=== PATIENT | male | born 1995 | race Caucasian/White ===

== ENCOUNTER 2016-04-02 20:27 | Emergency (ER) | payer OTHER ==
[2016-04-02] MEDS ORDERED: AMOX TR/POT CLAV 875MG/125MG TABLETS (FP) PO ONE (20:53)
[2016-04-02 20:57] VITALS: BP 135/80; PULSE 81; TEMP 99.5; BMI 49.4
--- NOTE | 2016-04-02 20:59 | PDOC ---
History of Present Illness - General History Source: Patient Exam Limitations: No Limitations - History of Present Illness Initial Comments: 04/02/16 20:59 The patient is a 20 year old male with no significant past medical history, who presents to the ED with a fever, cough, cold w/ yellow nasal discharge, headache , and difficulty breathing for the past 3 days ago. Patient states he coughed up streaks of blood as well. Patient states he was put on azithromycin when he had the flu two weeks ago. Patient has been taking nyquil and dayquil with no alleviation. Patient denies any sick contacts. Patient denies smoking cigarettes, denies drinking alcohol. PCP: Dr. Griffin <Stefan Cerna - Last Filed: 04/02/16 20:59> <Chuyita Fallon - Last Filed: 04/03/16 05:38> - General Chief Complaint: Cold Symptoms Stated Complaint: COUGH Time Seen by Provider: 04/02/16 20:29 Past History <Stefan Cerna - Last Filed: 04/02/16 20:59> - Past Medical History Other medical history: SEASONAL ALLERGIES - Surgical History Appendectomy: Yes - Immunization History Immunization Up to Date: Yes - Psycho/Social/Smoking Cessation Hx Anxiety: No Suicidal Ideation: No Smoking History: Never smoked Have you smoked in the past 12 months: No Number of Cigarettes Smoked Daily: 0 Hx Alcohol Use: Yes (social) Drug/Substance Use Hx: No Substance Use Type: None <Chuyita Fallon - Last Filed: 04/03/16 05:38> - Past Medical History Allergies/Adverse Reactions: Allergies Allergy/AdvReac Type Severity Reaction Status Date / Time No Known Allergies Allergy Verified 12/13/15 15:45 Home Medications: Ambulatory Orders Amox-Tr/K Cl [Augmentin - 875Mg Tablet] 1 tab PO BID #14 tablet 04/02/16 Review of Systems - Review of Systems Able to Perform ROS?: Yes Comments:: 04/02/16 21:00 CONSTITUTIONAL: Present: fever Absent: chills, diaphoresis, generalized weakness, malaise, loss of appetite HEENT: Absent: rhinorrhea, nasal congestion, throat pain, throat swelling, difficulty swallowing, mouth swelling, ear pain, eye pain, visual Changes CARDIOVASCULAR: Absent: chest pain, syncope, palpitations, irregular heart rate, lightheadedness , peripheral edema RESPIRATORY: Present: cough, difficulty breathing Absent: dyspnea with exertion, orthopnea, wheezing, stridor, hemoptysis GASTROINTESTINAL: Absent: abdominal pain, abdominal distension, nausea, vomiting, diarrhea, constipation, melena, hematochezia GENITOURINARY: Absent: dysuria, frequency, urgency, hesitancy, hematuria, flank pain, genital pain MUSCULOSKELETAL: Absent: myalgia, arthralgia, joint swelling SKIN: Absent: rash, itching, pallor HEMATOLOGIC/IMMUNOLOGIC: Absent: easy bleeding, easy bruising, lymphadenopathy, frequent infections ENDOCRINE: Absent: unexplained weight gain, unexplained weight loss, heat intolerance, cold intolerance NEUROLOGIC: Present: headache Absent: focal weakness or paresthesias, dizziness, unsteady gait, seizure, mental status changes, bladder or bowel incontinence PSYCHIATRIC: Absent: anxiety, depression, suicidal or homicidal ideation, hallucinations. <Stefan Cerna - Last Filed: 04/02/16 20:59> *Physical Exam - Vital Signs Last Vital Signs Temp Pulse Resp BP Pulse Ox 99.5 F 81 16 135/80 96 04/02/16 20:30 04/02/16 20:30 04/02/16 20:30 04/02/16 20:30 04/02/16 20:30 - Physical Exam Comments: 04/02/16 21:00 GENERAL: The patient is awake, alert, and fully oriented, in no acute distress. HEAD: Normal with no signs of trauma. EYES: Pupils equal, round and reactive to light, extraocular movements intact, sclera anicteric, conjunctiva clear with no pallor. ENT: Ears normal, nares patent. Oropharynx erythematous without exudates. Dry mucous membranes. NECK: Normal range of motion, supple without lymphadenopathy, JVD, or masses. LUNGS: Breath sounds equal, clear to auscultation bilaterally. No wheeze/ crackles. HEART: Regular rate and rhythm, normal S1 and S2 without murmur or rub. ABDOMEN: Soft/nontender/nondistended. BS wnl. No guarding or rebound. No palpable masses. No hepatosplenomegaly. EXTREMITIES: Normal range of motion, no edema. No clubbing or cyanosis. No cords, erythema, or tenderness. NEUROLOGICAL: Cranial nerves II through XII grossly intact. Normal speech, normal gait. PSYCH: Normal mood, normal affect. SKIN: Warm, Dry, normal turgor, no rashes or lesions noted. <Stefan Cerna - Last Filed: 04/02/16 20:59> - Vital Signs Last Vital Signs Temp Pulse Resp BP Pulse Ox 99.5 F 81 16 135/80 96 04/02/16 20:30 04/02/16 20:30 04/02/16 20:30 04/02/16 20:30 04/02/16 20:30 <Chuyita Fallon - Last Filed: 04/03/16 05:38> ED Treatment Course - Medications Given in the ED: ED Medications Discontinued Medications Generic Name Dose Route Start Last Admin Trade Name Freq PRN Reason Stop Dose Admin Amoxicillin/Clavulanate Potassium 1 tab 04/02/16 20:53 04/02/16 20:57 Augmentin - 875mg Tablet PO 04/02/16 20:54 1 tab ONCE ONE Administration <Stefan Cerna - Last Filed: 04/02/16 20:59> Progress Note - Progress Note Progress Note: Documentation has been prepared under my direction and personally reviewed by me in its entirety. I attest that this documented accurately reflects all work, treatment, procedures and medical decision making performed by me. <Chuyita Fallon - Last Filed: 04/03/16 05:38> Medical Decision Making - Medical Decision Making As noted above, this 20-year-old man presents with a few day history of fever, purulent nasal discharge and cough productive of yellowish sputum. Patient recently treated for bronchitis with azithromycin, course of antibiotics completed approximately 10 days ago. Since then, the patient has been traveling on business and now presents with new symptoms. Exam as noted above. Clinical presentation consistent with viral upper respiratory infection that has , in the last 48 hours likely resulted in bacterial sinusitis. Because patient has persistence of symptoms despite [id number] antihistamine/decongestant , along with persistent fever, patient will be treated with Augmentin 875/125 for the next week. He is been advised to rest, drink plenty of fluids and use humidifier in his home environment. He should return to the emergency room if he has any worsening of his symptoms but plan to follow up with his PMD, Dr. Griffin within the next 3-4 days. <Chuyita Fallon - Last Filed: 04/03/16 05:38> *DC/Admit/Observation/Transfer - Attestations Scribe Attestion: 04/02/16 21:00 Documentation prepared by Stefan Cerna, acting as chief medical director for Chuyita Fallon MD. <Stefan Cerna - Last Filed: 04/02/16 20:59> <Chuyita Fallon - Last Filed: 04/03/16 05:38> Diagnosis at time of Disposition: Acute sinusitis Qualifiers: Sinusitis location: frontal Recurrence: non-recurrent Qualified Code(s): J01.10 - Acute frontal sinusitis, unspecified Acute bronchitis Qualifiers: Bronchitis organism: unspecified organism Qualified Code(s): J20.9 - Acute bronchitis, unspecified - Discharge Dispostion Disposition: HOME Condition at time of disposition: Stable - Prescriptions Prescriptions: Amox-Tr/K Cl [Augmentin - 875Mg Tablet] 1 tab PO BID #14 tablet - Referrals Referrals: Michael Griffin MD [Primary Care Provider] - 3 days - Patient Instructions Printed Discharge Instructions: Sinusitis Additional Instructions: rest;drink plenty of fluids Augmentin 875/125 twice a day for one week take antibiotic with food use humidifier in your home followup with Dr Griffin within 2-3 days return to ER if you have high fever or difficulty breathing
== END 2016-04-02 21:06 | disposition home or self-care (01) ==
LOC: FER 20:27
DX: J01.10 Acute frontal sinusitis, unspecified (principal); J20.9 Acute bronchitis, unspecified
CPT/HCPCS: 99281-25

== ENCOUNTER 2016-04-29 16:55 | Emergency (ER) | payer OTHER ==
--- NOTE | 2016-04-29 16:58 | PDOC ---
History of Present Illness - General History Source: Patient Exam Limitations: No Limitations - History of Present Illness Initial Comments: 04/29/16 17:10 The patient is a 20 year old male, with no significant past medical history, who presents to the emergency department with left upper quadrant bulging. He reports that he awoke with the bulge and denies any pain. He notes that he had bronchitis 3 weeks ago and 3 weeks before that he had the flu. He denies any kind of injury to the area. The patient denies chest pain, shortness of breath, headache and dizziness. Denies fever, chills, nausea, vomit, diarrhea and constipation. Allergies: None Past surgical history: Appendectomy Social history: Social alcohol use. He denies tobacco or drug use reported PMD - Dr. Griffin <Denis Kendrick - Last Filed: 04/29/16 17:10> <Jada Vázquez - Last Filed: 04/30/16 11:24> - General Chief Complaint: Pain Stated Complaint: LQP PAIN/BRUISE Time Seen by Provider: 04/29/16 16:57 Past History <Denis Kendrick - Last Filed: 04/29/16 17:10> - Surgical History Appendectomy: Yes - Immunization History Immunization Up to Date: Yes - Psycho/Social/Smoking Cessation Hx Anxiety: No Suicidal Ideation: No Smoking History: Never smoked Have you smoked in the past 12 months: No Number of Cigarettes Smoked Daily: 0 Hx Alcohol Use: Yes (social) Drug/Substance Use Hx: No Substance Use Type: None <Jada Vázquez - Last Filed: 04/30/16 11:24> - Past Medical History Allergies/Adverse Reactions: Allergies Allergy/AdvReac Type Severity Reaction Status Date / Time No Known Allergies Allergy Verified 04/29/16 16:57 Home Medications: Ambulatory Orders Cholecalciferol (Vitamin D3) [Vitamin D3] 50,000 unit PO WEEKLY 04/29/16 Review of Systems - Review of Systems Able to Perform ROS?: Yes Comments:: 04/29/16 17:10 GENERAL/CONSTITUTIONAL: No fever or chills. No weakness. HEAD, EYES, EARS, NOSE AND THROAT: No change in vision. No ear pain or discharge. No sore throat. CARDIOVASCULAR: No chest pain or shortness of breath RESPIRATORY: No cough, wheezing, or hemoptysis. GASTROINTESTINAL: +Left upper quadrant bulge. No nausea, vomiting, diarrhea or constipation. GENITOURINARY: No dysuria, frequency, or change in urination. MUSCULOSKELETAL: No joint or muscle swelling or pain. No neck or back pain. SKIN: No rash NEUROLOGIC: No headache, vertigo, loss of consciousness, or change in strength/ sensation. ENDOCRINE: No increased thirst. No abnormal weight change <Denis Kendrick - Last Filed: 04/29/16 17:10> *Physical Exam - Vital Signs Last Vital Signs Temp Pulse Resp BP Pulse Ox 98.4 F 68 16 118/74 99 04/29/16 16:59 04/29/16 16:59 04/29/16 16:59 04/29/16 16:59 04/29/16 16:59 <Denis Kendrick - Last Filed: 04/29/16 17:10> - Physical Exam Comments: GENERAL: Awake, alert, and fully oriented, in no acute distress. HEAD: No signs of trauma EYES: PERRLA, EOMI, sclera anicteric, conjunctiva clear ENT: Auricles normal inspection, hearing grossly normal, nares patent, oropharynx clear without exudates. Moist mucosa NECK: Normal ROM, supple, no lymphadenopathy, JVD, or masses LUNGS: Breath sounds equal, clear to auscultation bilaterally. No wheezes, and no crackles. +Small ecchymosis overL anterior inferior rib margin. HEART: Regular rate and rhythm, normal S1 and S2, no murmurs, rubs or gallops ABDOMEN: Soft, nontender, normoactive bowel sounds. No guarding, no rebound. No organomegaly. EXTREMITIES: Normal range of motion, no edema. No clubbing or cyanosis. No cords, erythema, or tenderness NEUROLOGICAL: Cranial nerves II through XII grossly intact. Normal speech, normal gait SKIN: Warm, Dry, normal turgor, no rashes or lesions noted. <Jada Vázquez - Last Filed: 04/30/16 11:24> ED Treatment Course - LABORATORY CBC & Chemistry Diagram: 04/29/16 17:18 04/29/16 17:18 <Jada Vázquez - Last Filed: 04/30/16 11:24> Medical Decision Making - Medical Decision Making XR results d/w patient. Unclear how the rib fracture occurred- no direct trauma , however, it is possible that he injured himself while shoveling during the recent snowstorm. No flail chest. No SOB. Stable for DC. <Jada Vázquez - Last Filed: 04/30/16 11:24> *DC/Admit/Observation/Transfer - Attestations Scribe Attestion: 04/29/16 17:11 Documentation prepared by Denis Kendrick, acting as veterinary medical officer for Jada Vázquez MD <Denis Kendrick - Last Filed: 04/29/16 17:10> - Discharge Dispostion Admit: No <Jada Vázquez - Last Filed: 04/30/16 11:24> Diagnosis at time of Disposition: Rib fracture Qualifiers: Encounter type: initial encounter Rib fracture type: single rib Fracture type: closed Laterality: left Qualified Code(s): S22.32XA - Fracture of one rib, left side, initial encounter for closed fracture - Discharge Dispostion Disposition: HOME Condition at time of disposition: Stable - Patient Instructions Printed Discharge Instructions: DI for Rib Fracture
[2016-04-29 17:04] VITALS: BP 118/74; PULSE 68; TEMP 98.4; BMI 38.7
[2016-04-29 17:28] LABS: BASOPHIL 3.9 % (0-2.0); EOSINOPHIL 4.4 % (0-4.5); MCH 28.5 pg (25.7-33.7); MCHC 33.5 g/dl (32.0-35.9); MEAN PLT VOLUME 7.9 fl (7.5-11.1); NEUTROPHILS 56.7 % (42.8-82.8); PLATELET COUNT 299 K/MM3 (134-434); RDW 12.6 % (11.9-15.9); WHITE BLOOD COUNT 7.9 K/mm3 (4.0-10.0)
[2016-04-29 17:34] LABS: ALBUMIN 4.4 g/dl (3.5-5.0); ALK PHOS 59 U/L (32-92); ANION GAP 7 (8-16); BILIRUBIN,TOTAL 1.1 mg/dl (0.2-1.0); CALCIUM 8.9 mg/dl (8.4-10.2); CO2 26 mmol/L (22-28); CREATININE 0.7 mg/dl (0.6-1.3); GLUCOSE,RANDOM 101 mg/dl (74-106); SGOT/AST 51 U/L (10-42); SGPT/ALT 98 U/L (10-40); TOT PROT 7.5 g/dl (6.4-8.3)
== END 2016-04-29 19:00 | disposition home or self-care (01) ==
LOC: FER 16:55
DX: S22.32XA Fracture of one rib, left side, initial encounter for closed fracture (principal); X58.XXXA Exposure to other specified factors, initial encounter; Y93.89 Activity, other specified; Y92.9 Unspecified place or not applicable
CPT/HCPCS: 36415; 71101-TC; 80053; 85025; 86308; 99283-25

== ENCOUNTER 2021-04-12 23:12 | Emergency (ER) | payer BC ==
[2021-04-12 23:18] VITALS: BP 122/74; PULSE 52; TEMP 97.4; BMI 32.8
[2021-04-12] MEDS ORDERED: MECLIZINE HCL 25 MG TABLET (FP) ONE (23:23)
[2021-04-12] MEDS ORDERED: MECLIZINE HCL 25 MG TABLET (FP) PO ONE (23:26)
[2021-04-12] MEDS ORDERED: ONDANSETRON *ODT* 4 MG TABLET SL ONE (23:36)
[2021-04-12] MEDS ORDERED: ONDANSETRON *ODT* 4 MG TABLET ONE (23:37)
== END 2021-04-13 00:32 | disposition home or self-care (01) ==
LOC: FER 23:12
DX: R42 Dizziness and giddiness (principal); R11.0 Nausea
CPT/HCPCS: 99283-25; Q0162